=== PATIENT | female | born 1970 | race Caucasian/White ===

== ENCOUNTER → 2017-09-06 | Outpatient (REF) | payer BC ==
[~2017-09-06] MED LIST: ACIPHX20PT PO; ALP5 PO; BILB30CA PO; CALC-797 PO; CALC600T63 PO; CHOL10005 PO; CIDE300T4 PO; CRAN200C5 PO; CRAN500C10 PO; IBU600 PO; LOR5 PO; MULT-820 PO; MULT1CAP59 PO; OMEG1CAP2 PO; RANI-325 PO
== END ==
LOC: ZZSENDIN 07:38
PROVIDERS: ATTEND Otolaryngology
DX: K21.9 Gastro-esophageal reflux disease without esophagitis (principal)
CPT/HCPCS: 87338

== ENCOUNTER → 2018-04-27 | Outpatient (CLI) | payer BC ==
[~2018-04-27] MED LIST changes: +RANI-366 PO
== END ==
LOC: LAB 12:05
PROVIDERS: ATTEND Otolaryngology
DX: J02.9 Acute pharyngitis, unspecified (principal)
CPT/HCPCS: 87491; 87591